=== PATIENT | male | born 1990 | race Caucasian/White ===

== ENCOUNTER 2018-07-06 15:03 | Emergency (ER) | payer BC ==
[2018-07-06] MEDS ORDERED: Tetracaine HCl/PF 0.5% 4 ML Bottle EYELF ONE (15:15)
[2018-07-06] MEDS ORDERED: Take Home: Gentamicin 0.3% Ophth Soln 5 ML, 1 Bottle Pack EYEBOTH ONE (15:41)
--- NOTE | 2018-07-06 15:41 | EDM.PDOC ---
ED HPI GENERAL MEDICAL PROBLEM - General Chief Complaint: Eye Problems Stated Complaint: eye Time Seen by Provider: 07/06/18 15:05 Source of Information: Reports: Patient, RN, RN Notes Reviewed History Limitations: Reports: No Limitations - History of Present Illness INITIAL COMMENTS - FREE TEXT/NARRATIVE: Patient presents to the ED at [facility] complaining of a FB to the left eye. 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 Patient states he did not feel any pain until today. He does not have any visual field disturbances. No blurry or double vision. Onset Date: 07/05/18 Left Eye Pain Score (Numeric/FACES): 3 Past Medical History - Past Health History Medical/Surgical History: Denies Medical/Surgical History Social & Family History - Tobacco Use Smoking Status *Q: Never Smoker - Alcohol Use Days Per Week of Alcohol Use: 1 Number of Drinks Per Day: 2 Total Drinks Per Week: 2 - Recreational Drug Use Recreational Drug Use: No ED ROS GENERAL - Review of Systems Review Of Systems: See Below Constitutional: Denies: Fever, Chills HEENT: Reports: Other (FB left eye). Denies: Vertigo, Vision Change Respiratory: Denies: Shortness of Breath, Cough Cardiovascular: Denies: Chest Pain, Palpitations Skin: Reports: No Symptoms Neurological: Reports: No Symptoms ED EXAM GENERAL W FULL EYE - Physical Exam Exam: See Below General Appearance: Alert, No Apparent Distress Eye Exam: Left Eye: Foreign Body, Bilateral Eye: EOMI, Normal Inspection, PERRL Eyelids: Bilateral: Normal Appearance Conjunctiva & Sclera: Bilateral: Normal Appearance Cornea Exam: Right: Normal Appearance, Left: Foreign Body Extraocular Movements: Bilateral: Intact Pupils: Normal Accommodation Pupillary Size: Bilateral: 3 mm Pupillary Reaction: Bilateral: Brisk Respiratory/Chest: No Respiratory Distress, Lungs Clear, Normal Breath Sounds Cardiovascular: Normal Peripheral Pulses, Regular Rate, Rhythm Neurological: Alert, Oriented Skin Exam: Warm, Dry, Intact, Normal Color ED EYE w/ Add Procedure - Eye Procedure Alcaine Drops Administered: Yes Eye FB Removal: Removal w/ Needle Progress: FB 3 o'clock position. FB removed using a needle. Tetracaine drops used. FB completely removed. No complications. Patient tolerated well. Course - Vital Signs Last Recorded V/S: Last Vital Signs Temp 36.8 C 07/06/18 15:05 Pulse 106 H 07/06/18 15:05 Resp 16 07/06/18 15:05 BP 169/93 H 07/06/18 15:05 Pulse Ox 99 07/06/18 15:05 - Orders/Labs/Meds Meds: Medications Discontinued Medications Generic Name Dose Route Start Last Admin Trade Name Mark PRN Reason Stop Dose Admin Tetracaine HCl 1 ml 07/06/18 15:15 07/06/18 15:24 Tetracaine 0.5% Steri-Unit Yesenia EYELF 07/06/18 15:16 4 drop ONETIME ONE Administration Departure - Departure Time of Disposition: 15:39 Disposition: Home, Self-Care 01 Condition: Good Clinical Impression: Corneal foreign body Qualifiers: Encounter type: initial encounter Laterality: left Qualified Code(s): T15.02XA - Foreign body in cornea, left eye, initial encounter - Discharge Information *PRESCRIPTION DRUG MONITORING PROGRAM REVIEWED*: Not Applicable *COPY OF PRESCRIPTION DRUG MONITORING REPORT IN PATIENT JAMAL: Not Applicable Instructions: Eye Foreign Body Additional Instructions: 1. Stay well hydrated and rest 2. Use drops for the full coarse of treatment, even if the eye feels better 3. Do not rub or irritate the eyes 4. If visual problems occur, recommend seeing an eye doctor 5. Call us with any questions/concerns - Problem List Review Problem List Initiated/Reviewed/Updated: Yes
== END 2018-07-06 16:00 | disposition home or self-care (01) ==
LOC: VM.ED 15:03
DX: T15.02XA Foreign body in cornea, left eye, initial encounter (principal); W45.8XXA Other foreign body or object entering through skin, initial encounter
CPT/HCPCS: 65210; 65220; 99283; A9270-GY

== ENCOUNTER 2020-12-04 11:35 | Emergency (ER) | payer BC ==
[2020-12-04] MEDS ORDERED: Proparacaine 0.5% Ophth Soln 15 ML Bottle EYERT PRN (11:41)
[2020-12-04] MEDS ORDERED: Fluorescein 1 MG Ophth Strip EYELF ONE (11:45)
[2020-12-04] MEDS ORDERED: Take Home: Acetaminophen/oxyCODONE 325-5 MG, 5 Tab Pack PO ONE (12:06)
[2020-12-04] MEDS ORDERED: Ciprofloxacin 0.3% Ophth Soln 2.5 ML Bottle EYELF ONE (12:06)
[2020-12-04] MEDS ORDERED: Ibuprofen 200 MG Tab PO STA (12:07)
[2020-12-04] MEDS ORDERED: Diphtheria,Pertussis(Acell),Tetanus Vaccine 0.5 ML Syringe IM ONE (12:08)
--- NOTE | 2020-12-04 12:12 | EDM.PDOC ---
ED HPI GENERAL MEDICAL PROBLEM - General Stated Complaint: SOMETHING IN LEFT EYE Time Seen by Provider: 12/04/20 11:45 Source of Information: Reports: Patient History Limitations: Reports: No Limitations - History of Present Illness INITIAL COMMENTS - FREE TEXT/NARRATIVE: Patient comes emergency department today with complaints of a foreign body in his left eye. 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 He tried to rinse it out multiple times last night he was unable to. He still has a foreign body sensation to his left eye this morning. He has no visual acuity changes. No blurry vision. He feels like he can see something just over the medial aspect of his iris. He has no headache. No visual acuity changes. No floaters or flashers. Left Eye Pain Score (Numeric/FACES): 4 - Related Data Allergies Allergy/AdvReac Type Severity Reaction Status Date / Time No Known Allergies Allergy Verified 07/06/18 17:01 Home Meds: Home Meds . [No Known Home Meds] 07/06/18 [History] Past Medical History - Past Health History Medical/Surgical History: Denies Medical/Surgical History ED ROS ENT - Review of Systems Review Of Systems: Comprehensive ROS is negative, except as noted in HPI. ED EXAM, ENT - Physical Exam Exam: See Below Exam Limited By: No Limitations General Appearance: Alert, WD/WN Eye Exam: Left Eye: Conjunctival Injection, Foreign Body (ON the medial aspect of the left iris there is a black FB in the cornea), Other (Fluorescein exam of the left eye does not identify any other corneal abrasion material debris other than the one on the medial aspect just over the iris at the 9 o'clock position.), Bilateral Eye: Normal Fundi, PERRL Ears: Normal External Exam, Normal TMs Nose: Normal Inspection Mouth/Throat: Normal Inspection Head: Atraumatic, Normocephalic Neck: Normal Inspection Respiratory/Chest: No Respiratory Distress Cardiovascular: Normal Peripheral Pulses Extremities: Normal Inspection Neurological: Alert, Oriented, CN II-XII Intact, Normal Cognition, No Motor/Sensory Deficits Psychiatric: Normal Affect, Normal Mood Skin: Warm, Dry, Intact, Normal Color Course - Vital Signs Last Recorded V/S: Last Vital Signs Temp 98 F 12/04/20 12:15 Pulse Resp BP Pulse Ox - Orders/Labs/Meds Meds: Medications Discontinued Medications Generic Name Dose Route Start Last Admin Trade Name Mark PRN Reason Stop Dose Admin Ciprofloxacin 1 ml 12/04/20 12:06 12/04/20 12:22 Ciloxan 0.3% Ophth Soln EYELF 12/04/20 12:07 2 drop ONETIME ONE Administration Diphtheria/Tetanus/Acell Pertussis 0.5 ml 12/04/20 12:08 12/04/20 12:25 Boostrix IM 12/04/20 12:09 0.5 ml .ONCE ONE Administration Fluorescein Sodium 1 mg 12/04/20 11:45 Ful-Karime EYELF 12/04/20 11:46 ONETIME ONE Ibuprofen 600 mg 12/04/20 12:07 12/04/20 12:24 Motrin PO 12/04/20 12:08 600 mg NOW STA Administration Oxycodone/Acetaminophen 1 packet 12/04/20 12:06 12/04/20 12:22 Take Home: Acetamin/Oxycodon 325-5 Mg, 5 Pack PO 12/04/20 12:07 1 packet ONETIME ONE Administration Proparacaine HCl 1 ml 12/04/20 11:41 12/04/20 12:32 Proparacaine 0.5% Ophth Soln EYERT 2 drop ASDIRECTED PRN Administration Other - Re-Assessments/Exams Free Text/Narrative Re-Assessment/Exam: 12/04/20 18:29 Proparacaine was instilled to the left eye with good anesthesia. There is clearly a lack small foreign body at the 9 o'clock position just over the medial aspect of the left iris. Initially I attempted to remove this with an eye spot but was unable to. I eventually had to use an ophthalmic bur and I was able to remove the foreign body. There was a rust ring that was left in place in the foreign body bed. I removed that further with a corneal bur. I then irrigated the left eye there was no other foreign material debris. Cipro eyedrops were instilled to the left eye. He was given pain management. Direct understanding was explained to him that he should have 90% improvement in 24 hours and 500% improvement in 48 hours. If he is not following this he is to recheck with optometry or ophthalmology. He is understanding of this his questions are answered. His tetanus immunization was updated as well. Departure - Departure Time of Disposition: 12:10 Disposition: Home, Self-Care 01 Clinical Impression: Corneal foreign body Qualifiers: Encounter type: initial encounter Laterality: left Qualified Code(s): T15.02XA - Foreign body in cornea, left eye, initial encounter - Discharge Information Instructions: Eye Foreign Body, [id number] Referrals: PCP,None [Primary Care Provider] - Forms: ED Department Discharge Additional Instructions: Tylenol and or Ibuprofen as need for pain. If pain not controlled with above. [place] 1 tablet every 4-6 hrs as needed for pain. Starter pack from the ED given. Caution sedation. Do not take with other tylenol as this has tylenol in it. Cipro eye drops, 2 drops to the left every every 4 hours for the next 5 days. Sent home with the patient. You should be 90% better in 24 hours and 100% better in 48 hrs. If you are not following this pattern see optometry. No Contact lenses for 10 days. Return to the ED if new or worsening symptoms. Sepsis Event Note (ED) - Focused Exam Vital Signs: Vital Signs Temp 12/04/20 12:15 98 F
== END 2020-12-04 12:30 | disposition home or self-care (01) ==
LOC: VM.ED 11:35
DX: T15.02XA Foreign body in cornea, left eye, initial encounter (principal); Z23 Encounter for immunization
CPT/HCPCS: 65220; 90471; 90715; 99283; 99283-25; A9270-GY

== ENCOUNTER 2021-03-05 02:05 | Emergency (ER) | payer BC ==
--- NOTE | 2021-03-05 03:06 | EDM.PDOC ---
ED HPI GENERAL MEDICAL PROBLEM - General Chief Complaint: Skin Complaint Stated Complaint: fredi-rectal sore Time Seen by Provider: 03/05/21 02:41 Source of Information: Reports: Patient History Limitations: Reports: No Limitations - History of Present Illness INITIAL COMMENTS - FREE TEXT/NARRATIVE: Patient presents to the ED with complaints of a lump/sore to the perirectal area . States he has had this in the past that was resolved with antibiotics. He states this is newly presented over the last week. 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 Significant increase in pain today and decided to finally come to be seen. Patient complains of leaky sore right above the rectum/anus within the gluteal fold. Onset: Gradual Onset Date: 02/28/21 Duration: Getting Worse Location: Reports: Other (buttocks) Quality: Reports: Ache Severity: Moderate Improves with: Reports: Cold Therapy, Heat Therapy Worsens with: Reports: Movement Associated Symptoms: Reports: No Other Symptoms - Related Data Allergies Allergy/AdvReac Type Severity Reaction Status Date / Time No Known Allergies Allergy Verified 07/06/18 17:01 Home Meds: Home Meds . [No Known Home Meds] 07/06/18 [History] Past Medical History - Past Health History Medical/Surgical History: Denies Medical/Surgical History ED ROS GENERAL - Review of Systems Review Of Systems: See Below Constitutional: Reports: No Symptoms HEENT: Reports: No Symptoms Respiratory: Reports: No Symptoms Cardiovascular: Reports: No Symptoms Endocrine: Reports: No Symptoms GI/Abdominal: Reports: No Symptoms : Reports: No Symptoms Musculoskeletal: Reports: No Symptoms Skin: Reports: No Symptoms, Lesions (lesion to upper gluteal fold area) Neurological: Reports: No Symptoms, Numbness Psychiatric: Reports: No Symptoms Hematologic/Lymphatic: Reports: No Symptoms Immunologic: Reports: No Symptoms ED EXAM, SKIN/RASH Exam: See Below Exam Limited By: No Limitations General Appearance: Alert, WD/WN, No Apparent Distress Ears: Normal External Exam, Normal Canal, Hearing Grossly Normal, Normal TMs Nose: Normal Inspection, Normal Mucosa, No Blood Throat/Mouth: Normal Inspection, Normal Lips, Normal Teeth, Normal Gums, Normal Oropharynx, Normal Voice, No Airway Compromise Head: Atraumatic, Normocephalic Neck: Normal Inspection, Supple, Non-Tender, Full Range of Motion Respiratory/Chest: No Respiratory Distress, Lungs Clear, Normal Breath Sounds, No Accessory Muscle Use, Chest Non-Tender Cardiovascular: Normal Peripheral Pulses, Regular Rate, Rhythm, No Edema, No Gallop, No JVD, No Murmur, No Rub Back Exam: Normal Inspection, Full Range of Motion, NT Extremities: Normal Inspection, Normal Range of Motion, Non-Tender, No Pedal Edema, Normal Capillary Refill Neurological: Alert, Oriented, CN II-XII Intact, Normal Cognition, Normal Gait, Normal Reflexes, No Motor/Sensory Deficits Psychiatric: Normal Affect, Normal Mood Lymphatic: No Adenopathy ED SKIN PROCEDURES - I&D Site: buttocks/gluteal fold Skin Prep: Chlorhexidine (Hibiciens) Local Anesthesia: Lidocaine: 1% Plain Local Anesthetic Volume: 3cc Area Incised With: 15 Blade Drainage: Purulent, Small Amount Probed to Break Up Loculations: Yes Packed With: None Sterile Dressing: None Complications: No Course - Orders/Labs/Meds Orders: Active Orders 24 hr Category Date Time Status CULTURE MRSA [RM] Stat Lab 03/05/21 03:07 Ordered CULTURE WOUND [RM] Stat Lab 03/05/21 03:07 Ordered Meds: Medications Discontinued Medications Generic Name Dose Route Start Last Admin Trade Name Freq PRN Reason Stop Dose Admin Cephalexin 1 packet 03/05/21 03:33 03/05/21 03:46 Take Home: Cephalexin 500 Mg Cap, 4 Cap Pack PO 03/05/21 03:34 1 packet ONETIME ONE Administration Lidocaine HCl 5 ml 03/05/21 02:55 Lidocaine 1% 5 Ml Sdv INJECT 03/05/21 02:56 ONETIME ONE Departure - Departure Time of Disposition: 03:51 Disposition: Home, Self-Care 01 Condition: Good Clinical Impression: Fredi-rectal abscess - Discharge Information *PRESCRIPTION DRUG MONITORING PROGRAM REVIEWED*: Not Applicable *COPY OF PRESCRIPTION DRUG MONITORING REPORT IN PATIENT JAMAL: Not Applicable Instructions: Skin Abscess Referrals: PCP,None [Primary Care Provider] - Forms: ED Department Discharge Additional Instructions: 1. Take Keflex 500 mg by mouth 4 times daily x 10 days 2. Take probiotic and yogurt to prevent antibiotic associated side effects such as C. Difficile diarrhea 3. Stay well hydrated 4. Establish at one of the [facility] for close follow up 5. Cultures will be run and you will be notified of the results. Antibiotic coverage may need to be altered. We will also let you know that as well. 6. Call with any questions or concerns - Problem List & Annotations (1) Fredi-rectal abscess SNOMED Code(s): 95417636 Code(s): K61.1 - RECTAL ABSCESS Status: Acute Priority: Low - Problem List Review Problem List Initiated/Reviewed/Updated: Yes - My Orders Last 24 Hours: My Active Orders 03/05/21 03:07 CULTURE MRSA [RM] Stat CULTURE WOUND [RM] Stat - Assessment/Plan Last 24 Hours: My Active Orders 03/05/21 03:07 CULTURE MRSA [RM] Stat CULTURE WOUND [RM] Stat Assessment:: fredi-rectal abscess Plan: 1. Take Keflex 500 mg by mouth 4 times daily x 10 days 2. Take probiotic and yogurt to prevent antibiotic associated side effects such as C. Difficile diarrhea 3. Stay well hydrated 4. Establish at one of the [facility] clinics for close follow up 5. Cultures will be run and you will be notified of the results. Antibiotic coverage may need to be altered. We will also let you know that as well. 6. Call with any questions or concerns
[2021-03-05] MEDS ORDERED: Take Home: Cephalexin 500 MG Cap, 4 Cap Pack PO ONE (03:33)
== END 2021-03-05 03:51 | disposition home or self-care (01) ==
LOC: VM.ED 02:05
DX: K61.1 Rectal abscess (principal)
CPT/HCPCS: 10060; 46040; 87070; 87075; 87077; 87186; 99283; 99283-25; A9270-GY

== ENCOUNTER 2025-04-04 19:43 | Emergency (ER) | payer OTHER, BC ==
[2025-04-04] MEDS: Fluorescein 1 MG Ophth Strip EYELF ONE (20:00)
[2025-04-04] MEDS: Tetracaine HCl/PF 0.5% 4 ML Bottle EYELF ONE (20:06)
[2025-04-04] MEDS: Erythromycin Base 0.5% Ophth Oint 3.5 GM Tube EYELF ONE (20:07)
== END 2025-04-04 20:18 | disposition home or self-care (01) ==
LOC: VM.ED 19:43
DX: S05.02XA Injury of conjunctiva and corneal abrasion without foreign body, left eye, initial encounter (principal); W45.8XXA Other foreign body or object entering through skin, initial encounter
CPT/HCPCS: 99283; A9270-GY; J3490